=== PATIENT | female | born 1990 ===

== ENCOUNTER 2017-08-14 13:37 | Emergency (ER) | payer SELFPAY ==
[2017-08-14 13:45] VITALS: BP 119/89
[2017-08-14] MEDS ORDERED: XYLOCAINE 1 % (PLAIN) ONE (14:17)
[2017-08-14] MEDS ORDERED: BACITRACIN ZINC ONE (14:21)
[2017-08-14] MEDS ORDERED: HYDROGEN PEROXIDE 3% ONE (14:21)
--- NOTE | 2017-08-14 15:20 | DR.GENAD ---
HPI - PCP Primary Care Physician: NFD - Complaint/Symptoms Chief Complaint:: PT WAS WASHING DISHES AND PT C/O A THE GLASS BUSTED WHILE SHE WAS WASHING IT PT HAS MULTIPLE LACER ATIONS TO HER LEFT HAND BLEEDING CONTROLLED AND DRESSING APPLIED, - Nurses notes reviewed Nurses Notes Review: Yes - Source History Provided: Patient - Mode of Arrival Mode of Arrival: Ambulatory - Timing Onset of Chief Complaint: 08/14/17 PMH - PMH Past Medical History: Yes Past Medical History: Anxiety, Hypertension Past Surgical History: Yes Surgical History: Cholecystectomy, Ortho Surgery, Tonsillectomy, Other - Family History History of Family Medical Conditions: Yes Family Medical History: Diabetes Mellitus, Cancer, Hypertension - Social History Does patient currently use any type of tobacco product: Yes Have you used tobacco products in the last 12 months: Yes Type of Tobacco Use: Cigarettes How many years tobacco product used: 5 Does any household member use tobacco: No Alcohol Use: None Do you use any recreational Drugs:: No Lives With: Family Lives Where: Home - infectious screening In the last 2 months have you had wt loss of >10#?: NO Have you had fever, night sweats or hemotysis?: No Have you traveled outside the country in the last 6 months?: No Isolation: Standard PE - Vital Signs Vitals: Temperature 96.9 F Pulse Rate 109 Respiratory Rate 20 Blood Pressure [Right Arm] 136/86 Blood Pressure [Left Arm] 127/75 Blood Pressure 119/89 O2 Sat by Pulse Oximetry 97 - Discharge Plan Disposition: HOME, SELF-CARE Condition: Stable Prescriptions: Cephalexin [KEFLEX CAP 500 MG *] 500 mg PO TID #21 cap Tramadol HCl 50 mg PO Q8H PRN #12 tablet PRN Reason: - Follow ups/Referrals Follow ups/Referrals: NFD,None [Primary Care Provider] - 3 days - Instructions Instructions: Laceration Care, Adult, [id number] Additional Instructions: RETURN TO ED IF WORSE. SUTURE OUT IN 10 DAYS
== END 2017-08-14 15:31 | disposition home or self-care (01) ==
LOC: ER 13:45
PROC: 0XQK0ZZ Repair Left Hand, Open Approach (ICD-10-PCS; principal; 2017-08-14)
DX: S61.412A Laceration without foreign body of left hand, initial encounter (principal); W45.8XXA Other foreign body or object entering through skin, initial encounter; Y92.9 Unspecified place or not applicable
CPT/HCPCS: 12001; 99282; J2001

== ENCOUNTER 2018-09-03 02:18 | Inpatient (IN) ==
[2018-09-03] MEDS ORDERED: D5 1/2 NS 1000 ML 1,000 ML IV ONE ×2 (02:35→06:33)
[2018-09-03] MEDS ORDERED: D5 1/2 NS 1000 ML 1,000 ML IV SCH (02:37)
[2018-09-03 02:47] VITALS: BMI 21.9
[2018-09-03 02:48] LABS: BILIRUBIN,URINE NEGATIVE (NEGATIVE); BLOOD/HEMOGLOBIN,URINE 5+ (NEGATIVE); GLUCOSE, URINE NEGATIVE (NEGATIVE); KETONES,URINE NEGATIVE (NEGATIVE); LEUKOCYTE ESTERASE ,URINE 1+ (NEGATIVE); NITRITES,URINE NEGATIVE (NEGATIVE); PROTEIN,URINE 2+ (NEGATIVE); UROBILINOGEN,URINE 2+ (NORMAL)
[2018-09-03 02:55] LABS: APPEARANCE,URINE HAZY (CLEAR); BACTERIA,URINE TRACE /HPF (NEGATIVE); COLOR,URINE BLOODY (YELLOW); MUCUS,URINE FEW /HPF (NEGATIVE); RBC,URINE TNTC /HPF (NONE SEEN); SQUAMOUS EPITHELIAL CELL,UR FEW /HPF (NEGATIVE)
[2018-09-03 02:56] LABS: AMNISURE ROM TEST THERE IS A RUPTURE (NO RUPTURE)
[2018-09-03] MEDS ORDERED: ANCEF VIAL 1 GRAM IVP ONE (03:23)
[2018-09-03] MEDS ORDERED: ANCEF 1 GRAM IV PREMIX* 1 G/50 ML BAG IV ONE (03:23)
[2018-09-03] MEDS ORDERED: DURAMORPH ONE (03:41)
[2018-09-03 03:51] LABS: BASOPHILS # (AUTO) 0.1 X10^3/uL (0.0-0.1); BASOPHILS % (AUTO) 0.7 % (0.2-1.0); HEMATOCRIT 39.3 % (36.0-47.0); LYMPHOCYTES # (AUTO) 1.7 X10^3/uL (1.3-2.9); LYMPHOCYTES % (AUTO) 18.7 % (21.0-51.0); MEAN CORPUSCULAR HEMOGLOBIN 28.4 pg (27.0-34.0); MEAN CORPUSCULAR HGB CONC 33.2 g/dL (33.0-35.0); MEAN CORPUSCULAR VOLUME 85.6 fL (80.0-100.0); MEAN PLATELET VOLUME 10.2 fL (7.4-11.0); MONOCYTES # (AUTO) 0.5 x10^3/uL (0.3-0.8); MONOCYTES % (AUTO) 5.2 % (0.0-13.0); NEUTROPHILS # (AUTO) 6.7 x10^3/uL (2.2-4.8); NEUTROPHILS % (AUTO) 75.4 % (42.0-75.0); PLATELET COUNT 231 X10^3/uL (150.0-450.0); RED BLOOD COUNT 4.59 X10^6/uL (3.5-5.4); RED CELL DISTRIBUTION WIDTH 13.2 % (11.6-16.5); WHITE BLOOD COUNT 8.9 X10^3/uL (3.6-10.0)
[2018-09-03 04:02] LABS: ALANINE AMINOTRANSFERASE 226 Units/L (12-78); ALBUMIN 2.5 g/dL (3.4-5.0); ALKALINE PHOSPHATASE 274 Units/L (46-116); ASPARTATE AMINO TRANSFERASE 156 Units/L (15-37); BLOOD UREA NITROGEN 15 mg/dL (7-18); CALCIUM 8.5 mg/dL (8.5-10.1); CARBON DIOXIDE 20.5 mmol/L (21-32); CHLORIDE 102 mmol/L (98-107); COR CA(FOR HYPOALB) 9.7 mg/dL (8.5-10.1); COR NA(FOR HYPERGLY) 138 mmol/L (136-145); CREATININE 0.85 mg/dL (0.55-1.02); SODIUM 138 mmol/L (136-145); eGFR NON BLACK RACES > 60 (>60)
[2018-09-03] MEDS ORDERED: D5 1/2 NS 1L W PITOCIN 20 UNITS/L 20 UNITS/1,000 ML BAG IV ONE (04:20)
[2018-09-03] MEDS ORDERED: REGLAN INJ 10 MG VIAL IVP PRN ×2 (04:54→05:46)
[2018-09-03] MEDS ORDERED: ZOFRAN INJ 4 MG VIAL IVP PRN ×2 (04:54→05:46)
[2018-09-03] MEDS ORDERED: BENADRYL INJ 50 MG VIAL IVP PRN ×2 (04:54→05:46)
[2018-09-03] MEDS ORDERED: DILAUDID INJ IVP PRN (04:54)
[2018-09-03] MEDS ORDERED: PHENERGAN INJ 25 MG IVP PRN (04:54)
[2018-09-03] MEDS ORDERED: MYLICON TAB 80 MG CHEW PO PRN (05:46)
[2018-09-03] MEDS ORDERED: PERCOCET TAB 5/325 MG PO PRN (05:46)
[2018-09-03] MEDS ORDERED: ADACEL or BOOSTRIX TDaP VACCINE IM ONE ×2 (05:46→20:43)
[2018-09-03] MEDS ORDERED: NARCAN INJ IVP PRN (05:46)
[2018-09-03] MEDS ORDERED: D5 1/2 NS 1000 ML 1,000 ML with PITOCIN 20 UNITS IV SCH ×2 (06:00)
[2018-09-03] MEDS ORDERED: PERCOCET TAB 5/325 MG ONE (06:33)
[2018-09-03] MEDS ORDERED: PITOCIN ONE (06:35)
[2018-09-03] MEDS ORDERED: BENADRYL CAP/TAB 25 MG PO ONE ×3 (06:37→21:41)
[2018-09-03] MEDS ORDERED: ZESTRIL TAB 20 MG ONE ×2 (07:57→20:42)
[2018-09-03] MEDS: ZANTAC PO SCH ×2 (08:05→21:01)
[2018-09-03] MEDS: ZESTRIL TAB 20 MG PO SCH ×2 (08:05→21:01)
[2018-09-03] MEDS: PRENATAL PLUS PO SCH (08:06)
[2018-09-03] MEDS: TORADOL 30 MG VIAL IVP PRN ×2 (09:42→15:00)
[2018-09-03] MEDS ORDERED: STERILE WATER IRRIGATION IR ONE (09:43)
[2018-09-03] MEDS ORDERED: NICOTINE PATCH TD ONE (14:26)
[2018-09-03] MEDS ORDERED: MOTRIN TAB 800 MG PO PRN (14:57)
[2018-09-03] MEDS: NICOTINE PATCH TD SCH (15:00)
[2018-09-03] MEDS: BACTROBAN CREAM TOP SCH (21:00)
[2018-09-03] MEDS: COLACE CAP 100 MG PO SCH (21:01)
[2018-09-03] MEDS: PERCOCET TAB 5/325 MG PO PRN (21:12)
[2018-09-04] MEDS: BACTROBAN CREAM TOP SCH (06:07)
[2018-09-04 06:08] LABS: HEMATOCRIT 38.3 % (36.0-47.0); HEMOGLOBIN 12.8 g/dL (12.0-16.0)
[2018-09-04] MEDS ORDERED: DEPO-PROVERA CONTRACEPTIVE INJ IM ONE (08:42)
[2018-09-04] MEDS ORDERED: ZESTRIL TAB 20 MG ONE (09:37)
[2018-09-04] MEDS: PRENATAL PLUS PO SCH (09:42)
[2018-09-04] MEDS: ZANTAC PO SCH (09:42)
[2018-09-04] MEDS: COLACE CAP 100 MG PO SCH (09:42)
[2018-09-04] MEDS: ZESTRIL TAB 20 MG PO SCH (09:42)
[2018-09-04] MEDS: PERCOCET TAB 5/325 MG PO PRN (09:42)
[2018-09-04] MEDS: NICOTINE PATCH TD SCH (09:44)
[2018-09-04 10:19] VITALS: BP 114/69
[2018-09-07 00:43] LABS: HEPATITIS A ANTIBODY IGM Negative (Negative)
[2018-09-07 06:30] LABS: HEPATITIS B CORE IGM Negative (Negative); HEPATITIS B SURFACE ANTIGEN Negative (Negative)
== END 2018-09-04 10:10 | disposition home or self-care (01) | DRG 787 ==
LOC: ER 02:19 → LD 03:20 → MED/SURG 05:10
PROVIDERS: ADMIT Specialist; ATTEND Specialist
DX: Z37.0 Single live birth; N85.8 Other specified noninflammatory disorders of uterus; O34.211 Maternal care for low transverse scar from previous cesarean delivery; O99.324 Drug use complicating childbirth; F15.90 Other stimulant use, unspecified, uncomplicated; O60.14X0 Preterm labor third trimester with preterm delivery third trimester, not applicable or unspecified; O26.893 Other specified pregnancy related conditions, third trimester; Z3A.25 25 weeks gestation of pregnancy
CPT/HCPCS: 36415; 51702; 80053; 80074; 80307; 81001; 84112; 85014; 85018; 85025; 86592; 86701; 86703; 86850; 86900; 86901; 90715; 96365; 96374; 99284; A4217; A4222; S0197; G0434; J0690; J1050; J1885; J2590; J3490; S5010